=== PATIENT | male | born 1965 | race Caucasian/White ===

== ENCOUNTER 2020-12-11 11:20 | Emergency (ER) | payer OTHER, SELFPAY ==
--- NOTE | ~2020-12-11 | XR_ITS ---
XR chest 2V DATE: 12/11/2020 11:41 INDICATION: Shortness of breath, chest tightness, onset last evening. History of hypertension. TECHNIQUE: PA and lateral views COMPARISON: None FINDINGS: Normal heart size. No hilar or mediastinal enlargement. There is mild elevation of the righ t leaf of the diaphragm. No pulmonary infiltrate or consolidation, pleural effusion or pulmonary vasc ular congestion or pneumothorax. There is levoscoliosis of the upper thoracic spine. IMPRESSION: No active cardiopulmonary disease Reviewed, dictated and finalized at location A.
[2020-12-11 11:28] VITALS: BP 150/104; PULSE 110; RESP 16; TEMP 36.9; O2SAT 97
--- NOTE | 2020-12-11 11:34 | ED.GENADULT ---
HPI - General Adult General Chief complaint: Upper Respiratory Infection Stated complaint: SOB/Chest pain Source: patient Mode of arrival: ambulatory Limitations: no limitations History of Present Illness HPI narrative: 55 y/o male. PMHx: HTN, controlled on RISHABH. Presents to [facility] this AM with acute complaints of cough, chest congestion, and concern he may have Covid for the past 72 hours. Client reports to have been exposed to his , whom is now actively hospitalized with Covid 19 viral illness. He tells me his cough has been 'getting worse'. His chest hurts and smith when he coughs , and he has felt generalized body aches. No ABREU, otalgia, sore throat. No current chest pain, palpitations, edema. No abdominal pain, N/V/D, or GI upset. He notes intermittent dyspnea with cough. No wheezing, respiratory distress. He tells me he is a non-smoker. Has had 1 single Covid 19 vaccination, but was told they ran out before he was able to obtain second Covid shot. Client is w/o additional acute complaints of illness upon exam. Related Data Home Medications Medication Instructions Recorded Confirmed lisinopril 10 mg PO DAILY 12/11/20 12/11/20 Allergies Allergy/AdvReac Type Severity Reaction Status Date / Time No Known Allergies Allergy Verified 12/11/20 11:38 Review of Systems Review of Systems: CONSTITUTIONAL: Denies fever, chills, sweats. Body aches. EYES: Denies visual changes, redness, discharge. ENT: Positive rhinorrhea, congestion. No sore throat, otalgia. CARDIOVASCULAR: Denies chest pain, palpitations, edema. RESPIRATORY: Positive intermittent dyspnea, cough. No wheezing. GASTROINTESTINAL: Denies abdominal pain, nausea, vomiting, diarrhea. GENITOURINARY: Denies dysuria, hematuria, abnormal discharge SKIN: Denies rash or itching. MUSCULOSKELETAL: Denies acute back pain, joint pain, or myalgia. NEUROLOGIC: Denies numbness, or focal weakness. PSYCHIATRIC: Denies anxiety or depression. All systems reviewed & are unremarkable except as noted in HPI and below Exam Narrative: GENERAL: This is a well-nourished, well-developed adult, in no apparent distress. HEAD: normocephalic, atraumatic. EYES: PERRL. Sclera clear/white. EARS: External ears normal, auditory canals clear and without drainage, TMs normal. NOSE: External nose normal. Positive Rhinorrhea, no obstruction, nares patent. THROAT: Mucous membranes moist, posterior pharynx erythematous. No exudates. NECK: Neck supple, non-tender without lymphadenopathy, masses or thyromegaly. CARDIOVASCULAR: Regular rate and rhythm without murmurs, gallops, or rubs. RESPIRATORY: Upper airway Rhonchi, cleared w/cough. Breath sounds equal bilaterally. No wheezes, rales, or stridor. Reproducible mid-sternal chest wall pain with direct pressure to area. GASTROINTESTINAL: Abdomen soft, non-tender, nondistended. Bowel sounds are active. No guarding. SKIN: warm, intact with no suspicious lesions or rash, good texture and turgor. NEURO: Alert, active, and age appropriate. No focal neurologic deficits. EXTREMITIES: Negative. Course Course Emergency Course: -55 y/o male. PMHx HTN. -Presents with cough, chest congestion, Covid 19 positive close exposure. -Normotensive, minimally tachycardic, & afebrile. -No respiratory distress. He is not hypoxic on exam. -Proceed with Covid 19 rapid testing and Chest imgaing. Vital Signs Vital signs: Vital Signs Temperature 36.9 C 12/11/20 11:28 Pulse Rate 110 H 12/11/20 11:28 Respiratory Rate 16 12/11/20 11:28 Blood Pressure 150/104 H 12/11/20 11:28 Pulse Oximetry 97 12/11/20 11:28 Temperature 36.9 C 12/11/20 11:28 Pulse Rate 110 H 12/11/20 11:28 Respiratory Rate 16 12/11/20 11:28 Blood Pressure 150/104 H 12/11/20 11:28 Pulse Oximetry 97 12/11/20 11:28 Medical Decision Making MDM Narrative Medical decision making narrative: -No respiratory distress. No hyp
== END 2020-12-11 12:06 | disposition home or self-care (01) ==
PROVIDERS: Emergency Provider Nurse Practitioner Adult Health; PCP Internal Medicine
DX: B34.9 Viral infection, unspecified (principal); J06.9 Acute upper respiratory infection, unspecified; Z20.822 Contact with and (suspected) exposure to COVID-19; I10 Essential (primary) hypertension
CPT/HCPCS: 71046; 87426; 99213; C9803; G0463